=== PATIENT | male | born 1985 | race Caucasian/White ===

== ENCOUNTER 2017-03-26 18:02 | Emergency (ER) | payer BC ==
[~2017-03-26] VITALS: Ht 182.9 cm; Wt 70.3 kg
[2017-03-26 18:17] VITALS: BP_SYST 141
--- NOTE | 2017-03-26 18:20 | NUR ---
Patient to ER bed H1 to gown for evaluation. Side rails up. Report given to JOHANNE.
--- NOTE | 2017-03-26 18:25 | NUR ---
Dr Joyce at bedside examining patient
--- NOTE | 2017-03-26 18:30 | NUR ---
Pt brought by self,A&Ox4, pt present to ER for wound check of L index finger, no discharge noted,afebrile, skin pink and warm, cap refill <3.
[2017-03-26 18:43] VITALS: BP_SYST 138
--- NOTE | 2017-03-26 18:44 | NUR ---
Patient given written and verbal discharge instructions and verbalizes understanding. ER MD discussed with patient the results and treatment provided. Patient in stable condition. ID arm band removed. No Rx given. Patient educated on pain management and to follow up with PMD. Pain Scale 0/10. Opportunity for questions provided and answered.
== END 2017-03-26 18:43 | disposition home or self-care (01) ==
LOC: SED 18:02
DX: S61.211D Laceration without foreign body of left index finger without damage to nail, subsequent encounter (principal); X58.XXXD Exposure to other specified factors, subsequent encounter
CPT/HCPCS: 99281

== ENCOUNTER 2018-11-16 14:18 | Emergency (ER) | payer BC ==
[~2018-11-16] VITALS: Ht 180.3 cm; Wt 72.6 kg
[2018-11-16 14:28] VITALS: BP_SYST 147
--- NOTE | 2018-11-16 14:37 | NUR ---
Patient to ER bed 5 to gown for evaluation. Side rails up. Report given to Rajwinder LAMAS.
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
--- NOTE | 2018-11-16 15:15 | NUR ---
ER at bedside examining patient.
--- NOTE | 2018-11-16 15:20 | NUR ---
EMT applying ghada wrap to right ankle. no s/s of acute distress noted. girlfriend at bedside. will continue to monitor.
[2018-11-16] MEDS ORDERED: traMADol HCL HCL 50 MG TABLET (ULTRAM) PO ONE (15:30)
--- NOTE | 2018-11-16 15:52 | NUR ---
Patient endorsed to CYDNEY Mae. Patient has no s/s of acute distress noted. On laptop with girlfriend at bedside.
[2018-11-16 15:56] VITALS: BP_SYST 140
--- NOTE | 2018-11-16 15:58 | NUR ---
Patient given written and verbal discharge instructions and verbalizes understanding. ER MD discussed with patient the results and treatment provided. Patient in stable condition. ID arm band removed. Rx of Tramadol given. Patient educated on pain management and to follow up with PMD. Pain Scale 3/10. Opportunity for questions provided and answered. Medication side effect fact sheet provided.
== END 2018-11-16 15:56 | disposition home or self-care (01) ==
LOC: SED 14:18
DX: S93.401A Sprain of unspecified ligament of right ankle, initial encounter (principal); S43.401A Unspecified sprain of right shoulder joint, initial encounter; R03.0 Elevated blood-pressure reading, without diagnosis of hypertension; V89.2XXA Person injured in unspecified motor-vehicle accident, traffic, initial encounter; Y93.89 Activity, other specified; Y92.410 Unspecified street and highway as the place of occurrence of the external cause; Y99.8 Other external cause status
CPT/HCPCS: 99283